=== PATIENT | female | born 1960 | race Two or more races ===

== ENCOUNTER 2022-07-22 12:39 | Outpatient (CLI) | payer OTHER | END 2022-07-22 12:42 | disposition home or self-care (01) | LOC: NUCLEAR 12:39 → EDBD 12:39 → NUCLEAR 12:42 | PROVIDERS: ATTEND Psychiatry & Neurology Pain Medicine | DX: G31.84 Mild cognitive impairment of uncertain or unknown etiology (principal) | CPT/HCPCS: 78803; A9557 ==